=== PATIENT | female | born 1990 | race Caucasian/White ===

== ENCOUNTER 2021-12-18 11:45 | Outpatient (CLI) | payer BC, SELFPAY ==
--- NOTE | ~2021-12-18 | US_ITS ---
EXAMINATION: US breast RT complete HISTORY: Palpable lump at the 12:00 location of the right breast TECHNIQUE: Limited right breast ultrasound is performed. FINDINGS: There is no evidence of focal abnormal cystic or solid mass in the vicinity of the reported palpable abnormality of concern. IMPRESSION: No specific sonographic correlate is identified for the reported palpable abnormality of concern. Fur ther evaluation at this time should be based on clinical assessment. Continued follow-up physical exa mination is recommended. BI-RADS Category 1: Negative Reviewed, dictated and finalized at location A. IMPRESSION: No specific sonographic correlate is identified for the reported palpable abnor mality of concern. Further evaluation at this time should be based on clinical assessment. Continued follow-up physical examination is recommended. BI-RADS Category 1: Negative
== END 2021-12-18 11:46 | disposition home or self-care (01) ==
PROVIDERS: PCP Family Medicine; Visit Provider Obstetrics & Gynecology
DX: R92.8 Other abnormal and inconclusive findings on diagnostic imaging of breast (principal); N63.11 Unspecified lump in the right breast, upper outer quadrant
CPT/HCPCS: 76641